=== PATIENT | male | born 1930 | race Caucasian/White ===

== ENCOUNTER 2016-09-03 05:09 | Inpatient (IN) | payer MEDICARE, OTHER ==
--- NOTE | ~2016-09-03 | HP ---
History And Physical [address] [place]. [address] NAME: ANDREW DRISCOLL : [birth year] STATUS : ADM IN [facility]#: [id number] AGE: 86 ADM/REG DATE : 09/03/16 MR#: [id number] REPORT SERV DATE: 09/03/16 DICTATED BY: KRISTINA KOROMA DATE: 09/03/16 REPORT STATUS : Draft TRANSCRIBED BY: MODL DATE: 09/03/16 DATE OF ADMISSION: 09/03/2016 HISTORY OF PRESENT ILLNESS: Mr. Driscoll is an 86-year-old white male, who has diabetes, and he is followed by Dr. Enrrique Diaz. He lives alone. There is a family history of heart disease. Around 3 o'clock this morning he experienced crushing substernal chest discomfort. He was picked up by EMS and found to have ST elevation in the inferior leads. Heart rate at that time was 43. He is still having fairly significant chest pain at this time, although he appears comfortable. PAST MEDICAL HISTORY: Pertinent only for the diabetes and the hernia repair. ALLERGIES: NONE. MEDICATIONS: His only medication is metformin. SOCIAL HISTORY: Again he lives alone, and able to take care of himself. He performs activities of daily living independently. He does have a daughter that lives nearby. FAMILY HISTORY: Positive for heart disease late in life. PAST SURGICAL HISTORY: As listed above. REVIEW OF SYSTEMS: Otherwise all negative. PHYSICAL EXAMINATION: VITAL SIGNS: His blood pressure is 88/50, heart rate 65. GENERAL: The patient is a comfortable appearing, elderly white male. He is alert and oriented x3. HEENT: Pupils equal, round, and reactive to light and accommodation. Extraocular muscles are intact. NECK: Supple. Trachea midline. No carotid bruits. CHEST: Clear. HEART: PMI midclavicular line. Regular rate and rhythm. No significant murmur. ABDOMEN: Soft and nontender. EXTREMITIES: No clubbing, cyanosis, or edema. NEURO: Nonfocal. DATA: A 12-lead EKG does show ST elevation in the inferior leads with reciprocal change in the anterior leads. Blood work is pending. CLINICAL IMPRESSIONS: 1. Inferior ST-elevation myocardial infarction. History And Physical [address] [place]. [address] NAME: ANDREW DRISCOLL : [birth year] STATUS : ADM IN PAT#: [id number] AGE: 86 ADM/REG DATE : 09/03/16 MR#: [id number] REPORT SERV DATE: 09/03/16 DICTATED BY: KRISTINA KOROMA DATE: 09/03/16 REPORT STATUS : Draft TRANSCRIBED BY: ARELIS DATE: 09/03/16 2. Diabetes. 3. Advanced age. 4. Positive family history of heart disease. PLAN: 1. Primary PCI. 2. To the CCU for further care and observation. [facility]ELIS Kristina Koroma M.D. / [id number] CC: Daysi Emery D.O. F.A.C.P.
--- NOTE | ~2016-09-03 | CN ---
Consultation Report [facility] [address] [place]. [address] NAME: ANDREW DRISCOLL : [birth year] STATUS : ADM IN [facility]#: [id number] AGE: 86 ADM/REG DATE : 09/03/16 MR#: [id number] REPORT SERV DATE: 09/03/16 DICTATED BY: TONY POSEY DATE: 09/03/16 REPORT STATUS : Draft TRANSCRIBED BY: MODL DATE: 09/03/16 CONSULTATION DATE OF CONSULTATION: 09/03/2016 REASON FOR CONSULT: Diabetes management. HISTORY OF PRESENT ILLNESS: This is an 86-year-old male with a past medical history of type 2 diabetes, for which the patient states he has been a diabetic for several years but does not know for how long. Follows up with Dr. Enrrique Diaz. States that his last hemoglobin A1c was around 6 and only uses metformin at home. The patient states that he tries to refrain from sugary foods and does cook his own meals at home. He was admitted to Cardiology Service to Dr. Lencho Walter for complaint of chest pain and brought to the hospital by EMS and found to have some ST elevation. The patient is now status post PCI with stent placement to the RCA and currently in the CCU and the hospitalists were consulted for diabetes management. Currently, the patient feels well with no complaints and eating a snack. PAST MEDICAL HISTORY: Type 2 diabetes. PAST SURGICAL HISTORY: Hernia repair. SOCIAL HISTORY: No reported alcohol. Lives alone. Able to perform his ADLs at home. FAMILY HISTORY: Coronary artery disease. HOME MEDICATIONS: Please refer to MAR. PHYSICAL EXAMINATION: VITAL SIGNS: Blood pressure 106/54 with a pulse of 49, respirations 16, and saturating 99% on 2 L. Temperature, he is afebrile. GENERAL: The patient is alert and oriented, very pleasant, currently in no distress. HEENT: Pupils equal, round, and reactive to light. Extraocular muscles are intact. Moist mucous membranes. CARDIOVASCULAR: S1, S2. No appreciated rubs or gallops. No JVD. RESPIRATORY: Clear to auscultation bilaterally. No wheezes or crackles. No signs of tachypnea. ABDOMEN: Positive bowel sounds. Soft, nontender. No rebound. No fluid wave. No distention. EXTREMITIES: Warm and no edema. No appreciated rashes. NEUROLOGIC: Cranial nerves 2 through 12 are grossly intact. Moves all four extremities. No neuro focal deficits. SKIN: No appreciated ulcerations. Consultation Report [address] [place]. [address] NAME: ANDREW DRISCOLL : [birth year] STATUS : ADM IN [facility]#: [id number] AGE: 86 ADM/REG DATE : 09/03/16 MR#: [id number] REPORT SERV DATE: 09/03/16 DICTATED BY: TONY POSEY DATE: 09/03/16 REPORT STATUS : Draft TRANSCRIBED BY: ARELIS DATE: 09/03/16 LABS: White count of 10.8, hemoglobin of 12.9, with a platelet count 223. Sodium 141, potassium 4.5, chloride of 107, bicarb of 26, BUN of 23, creatinine of 1.19 with a glucose of 193, and troponin 0.04. ASSESSMENT AND PLAN: 1. History of type 2 diabetes. We will check hemoglobin A1c. Place on ADA diet. Continue with the sliding scale insulin and Levemir as needed. Also will consult Diabetic Education also. 2. ST-elevation [place] management deferred to Cardiology Management. 3. We will hold metformin for now. Thank you for consultation. [facility]/ARELIS Tony Posey M.D. / [phone] CC: Daysi Emery D.O. F.A.C.P.
--- NOTE | ~2016-09-03 | DS ---
Discharge Summary [facility] [address] [place]. [address] NAME: ANDREW DRISCOLL : [birth year] STATUS : DIS IN PAT#: [id number] AGE: 86 ADM/REG DATE : 09/03/16 MR#: [id number] REPORT SERV DATE: 09/19/16 DICTATED BY: KRISTINA KOROMA DATE: 09/18/16 REPORT STATUS : Draft TRANSCRIBED BY: ARELIS DATE: 09/18/16 Data Collection from hospitalization DISCHARGE DIAGNOSES: 1. ST-elevation myocardial infarction status post drug-eluting stent, E/M right coronary artery. 2. Coronary artery disease. 3. Type 2 diabetes mellitus. CONSULTATION: Dr. Wilma Bunch. PROCEDURES PERFORMED: 1. Cardiac catheterization and percutaneous coronary intervention, 09/03/2016. 2. Staged percutaneous coronary intervention, 09/05/2016. MEDICATIONS: Aspirin 81 mg daily, Lipitor 40 mg at bedtime, Plavix 75 mg daily, Prinivil 2.5 mg daily, Fortamet 500 mg twice a day, Lopressor 12.5 mg twice a day, nitroglycerin 0.4 mg sublingually as needed, multivitamins one dose twice a day. CONDITION AT DISCHARGE: Stable. DISPOSITION: The patient was discharged home on an 1800-calorie cardiac/diabetic diet with activities as instructed. He would follow up with Dr. Aniket Duffy, 10/01/2016. He would have creatinine blood draw performed between 09/07/2016 and 09/12/2016. HOSPITAL COURSE: This is an 86-year-old man, who has diabetes. He lives alone. He does have a family history of heart disease. Around 3 a.m., he experienced crushing substernal chest discomfort. He was picked up by EMS and was found to have ST elevation in the inferior leads. Heart rate at that time was 43. He was still having fairly significant chest pain at this time, although he appeared comfortable. He was felt to have had an [id number] myocardial infarction. Treatment options were discussed and it was elected to proceed with surgical intervention. He was admitted at this time for further evaluation and treatment. Upon admission, he was taken to the cardiac radiographer cardiac catheterization, where he underwent the above-mentioned procedure. He tolerated this well and there were no complications. Following this, he was seen by Dr. Wilma Bunch. The patient was currently in the CCU. She had been asked to see the patient regarding diabetes management. White count was 10.8. Glucose was 193. Hemoglobin A1c was going to be checked. He was placed on a diabetic diet. Sliding scale insulin and Levemir would be continued as needed. He was going to undergo diabetes education. Metformin was on hold. Following day, he underwent diabetes education. He said he was feeling well. He had no chest pain or dyspnea. Creatinine level was 1.23. Plans were being made for staged percutaneous coronary intervention to be performed. Sliding scale insulin continued. Metformin remained on hold. Hemoglobin A1c was 6.6. On the , the patient was taken back to the cardiac radiographer cardiac catheterization, where he underwent staged percutaneous coronary intervention. Creatinine level had decreased to 1.04. Left ventricular ejection fraction was 50%. Discharge planning was performed. On 09/06/2016, he was in no acute distress. His lungs were clear. He had no edema. Aspirin, Plavix, metoprolol, and statin Discharge Summary [address] [address] NAME: ANDREW DRISCOLL : [birth year] STATUS : DIS IN PAT#: [id number] AGE: 86 ADM/REG DATE : 09/03/16 MR#: [id number] REPORT SERV DATE: 09/19/16 DICTATED BY: KRISTINA KOROMA DATE: 09/18/16 REPORT STATUS : Draft TRANSCRIBED BY: ARELIS DATE: 09/18/16 were continued. Lisinopril was added. Discharge instructions were given. Due to his improved and stable condition, he was discharged home to be followed by home health care with the above-stated instructions. Information collected by: Jaquelin Hodge I submit the above information as my discharge summary. [facility] Kristina Koroma M.D. / [id number] CC: Daysi Emery D.O. F.A.C.P.
[2016-09-03 05:00] LABS: BASOPHILS 0.3 %; BASOPHILS ABSOLUTE 0.03 10/3/uL (0.0-0.16); EOSINOPHILS 2.2 %; EOSINOPHILS ABSOLUTE 0.24 10/3/uL (0.0-0.53); ER CBC TAT 0 Hrs 03 Mins; HEMOGLOBIN 12.9 g/dL (13.6-17.8); IMMATURE GRANULOCYTES 0.2 %; IMMATURE GRANULOCYTES ABSOLUTE 0.02 10/3/uL (0.0-0.11); LYMPHOCYTES 26.6 %; LYMPHOCYTES ABSOLUTE 2.87 10/3/uL (0.67-4.30); MEAN CORPUSCULAR HEMOGLOB 33.1 pg (26.0-34.0); MEAN CORPUSCULAR VOLUME 94.6 fL (80-100); MONOCYTES 4.1 %; MONOCYTES ABSOLUTE 0.44 10/3/uL (0.21-1.20); NEUTROPHILS 66.6 %; NEUTROPHILS ABSOLUTE 7.19 10/3/uL (2.02-8.40); PLATELET COUNT 223 10/3/uL (150-400); RBC DISTRIBUTION WIDTH 14.1 % (12.0-16.0); WHITE BLOOD CELLS 10.8 10/3/uL (4.5-10.5)
[2016-09-03 05:03] LABS: HEMATOCRIT 36.9 % (40.0-51.0); MANUAL DIFF NO %
[2016-09-03 05:09] LABS: PROTIME (NOT ORD) 13.2 SEC (12.0-14.5)
[2016-09-03 05:11] LABS: PARTIAL THROMBO TIME 20.7 SEC (22.5-37.2)
[2016-09-03 05:18] LABS: BUN (BLOOD UREA NITROGEN) 23 MG/DL (6-23); CALCIUM, SERUM 8.7 MG/DL (8.5-10.4); CHEST PAIN PROFILE TAT 0 Hrs 21 Mins; CHLORIDE, SERUM 107 MMOL/L (96-112); CO2 (CARBON DIOXIDE) 26 MMOL/L (24-34); CREATININE 1.19 MG/DL (0.70-1.30); GFR AFRICAN AMERICAN 63 ML/MIN (>=60); GFR NON AFRICAN AMERICAN 54 ML/MIN (>=60); GLUCOSE, SERUM 193 MG/DL (60-99); SODIUM, SERUM 141 MMOL/L (135-148); TROPONIN I 0.04 NG/ML (<0.05)
[2016-09-03 05:19] LABS: POTASSIUM, SERUM 4.5 MMOL/L (3.5-5.3)
[2016-09-03 14:02] LABS: CK-MB 103.5 NG/ML
[2016-09-03 14:03] LABS: CKMB INDEX (NOT ORD) 9.5
[2016-09-03] MEDS ORDERED: FORTAMET500 MG PO (14:11)
[2016-09-03] MEDS ORDERED: MULTIVITAMIN PACK PO (14:12)
[2016-09-03 21:19] LABS: CK-MB 97.2 NG/ML
[2016-09-03 21:20] LABS: CKMB INDEX (NOT ORD) 6.7
[2016-09-03 21:21] LABS: TROPONIN I 63.5 NG/ML (<0.05)
[2016-09-04 04:32] LABS: BASOPHILS 0.2 %; BASOPHILS ABSOLUTE 0.02 10/3/uL (0.0-0.16); EOSINOPHILS 2.2 %; EOSINOPHILS ABSOLUTE 0.22 10/3/uL (0.0-0.53); HEMATOCRIT 33.5 % (40.0-51.0); HEMOGLOBIN 11.2 g/dL (13.6-17.8); IMMATURE GRANULOCYTES 0.3 %; IMMATURE GRANULOCYTES ABSOLUTE 0.03 10/3/uL (0.0-0.11); LYMPHOCYTES 23.8 %; LYMPHOCYTES ABSOLUTE 2.35 10/3/uL (0.67-4.30); MEAN CORPUS HGB CONC 33.4 g/dL (32.0-36.0); MEAN CORPUSCULAR HEMOGLOB 31.5 pg (26.0-34.0); MEAN CORPUSCULAR VOLUME 94.1 fL (80-100); MEAN PLATELET VOLUME 8.7 fL (9.2-13.0); MONOCYTES ABSOLUTE 0.49 10/3/uL (0.21-1.20); NEUTROPHILS 68.5 %; NEUTROPHILS ABSOLUTE 6.75 10/3/uL (2.02-8.40); PLATELET COUNT 189 10/3/uL (150-400); RBC DISTRIBUTION WIDTH 14.3 % (12.0-16.0); RED CELL COUNT 3.56 10/6/uL (4.7-6.1); WHITE BLOOD CELLS 9.9 10/3/uL (4.5-10.5)
[2016-09-04 04:33] LABS: MANUAL DIFF NO %
[2016-09-04 04:57] LABS: BUN (BLOOD UREA NITROGEN) 22 MG/DL (6-23); CHLORIDE, SERUM 104 MMOL/L (96-112); CHOL/HDL RATIO(NOT ORDER) 2.3 (0-5); CHOLESTEROL 112 MG/DL (< 200); CK-MB 57.8 NG/ML; CKMB INDEX (NOT ORD) 4.7; CO2 (CARBON DIOXIDE) 29 MMOL/L (24-34); CPK 1239 U/L (0-200); CREATININE 1.23 MG/DL (0.70-1.30); GFR AFRICAN AMERICAN 60 ML/MIN (>=60); GFR NON AFRICAN AMERICAN 52 ML/MIN (>=60); GLUCOSE, SERUM 120 MG/DL (60-99); HDL CHOLESTEROL 48 MG/DL (> 39); LDL CHOLESTEROL 47 MG/DL (< 130); NON-HDL CHOLESTEROL 64 MG/DL (< 160); POTASSIUM, SERUM 4.4 MMOL/L (3.5-5.3); SODIUM, SERUM 138 MMOL/L (135-148); TRIGLYCERIDE 87 MG/DL (< 150)
[2016-09-05 04:38] LABS: BUN (BLOOD UREA NITROGEN) 22 MG/DL (6-23); CALCIUM, SERUM 8.2 MG/DL (8.5-10.4); CHLORIDE, SERUM 105 MMOL/L (96-112); CO2 (CARBON DIOXIDE) 28 MMOL/L (24-34); CREATININE 1.04 MG/DL (0.70-1.30); GFR AFRICAN AMERICAN 74 ML/MIN (>=60); GFR NON AFRICAN AMERICAN 64 ML/MIN (>=60); GLUCOSE, SERUM 105 MG/DL (60-99); POTASSIUM, SERUM 4.1 MMOL/L (3.5-5.3); SODIUM, SERUM 138 MMOL/L (135-148)
[2016-09-05 09:02] LABS: BASOPHILS 0.3 %; BASOPHILS ABSOLUTE 0.03 10/3/uL (0.0-0.16); EOSINOPHILS 4.9 %; EOSINOPHILS ABSOLUTE 0.45 10/3/uL (0.0-0.53); HEMATOCRIT 36.5 % (40.0-51.0); HEMOGLOBIN 12.1 g/dL (13.6-17.8); IMMATURE GRANULOCYTES 0.3 %; IMMATURE GRANULOCYTES ABSOLUTE 0.03 10/3/uL (0.0-0.11); LYMPHOCYTES 21.9 %; LYMPHOCYTES ABSOLUTE 2.03 10/3/uL (0.67-4.30); MANUAL DIFF NO %; MEAN CORPUS HGB CONC 33.2 g/dL (32.0-36.0); MEAN CORPUSCULAR HEMOGLOB 30.9 pg (26.0-34.0); MEAN CORPUSCULAR VOLUME 93.1 fL (80-100); MEAN PLATELET VOLUME 9.1 fL (9.2-13.0); MONOCYTES 5.5 %; MONOCYTES ABSOLUTE 0.51 10/3/uL (0.21-1.20); NEUTROPHILS 67.1 %; NEUTROPHILS ABSOLUTE 6.21 10/3/uL (2.02-8.40); PLATELET COUNT 195 10/3/uL (150-400); RBC DISTRIBUTION WIDTH 14.2 % (12.0-16.0); RED CELL COUNT 3.92 10/6/uL (4.7-6.1); WHITE BLOOD CELLS 9.3 10/3/uL (4.5-10.5)
[2016-09-05 09:07] LABS: PROTIME (NOT ORD) 13.3 SEC (12.0-14.5)
[2016-09-05 09:16] LABS: BUN (BLOOD UREA NITROGEN) 19 MG/DL (6-23); CALCIUM, SERUM 8.3 MG/DL (8.5-10.4); CHLORIDE, SERUM 104 MMOL/L (96-112); CHOL/HDL RATIO(NOT ORDER) 2.6 (0-5); CHOLESTEROL 129 MG/DL (< 200); CO2 (CARBON DIOXIDE) 28 MMOL/L (24-34); CREATININE 1.17 MG/DL (0.70-1.30); GFR AFRICAN AMERICAN 64 ML/MIN (>=60); GFR NON AFRICAN AMERICAN 55 ML/MIN (>=60); GLUCOSE, SERUM 112 MG/DL (60-99); HDL CHOLESTEROL 49 MG/DL (> 39); LDL CHOLESTEROL 59 MG/DL (< 130); NON-HDL CHOLESTEROL 80 MG/DL (< 160); POTASSIUM, SERUM 4.4 MMOL/L (3.5-5.3); SODIUM, SERUM 138 MMOL/L (135-148); TRIGLYCERIDE 107 MG/DL (< 150)
[2016-09-06 05:21] LABS: HEMATOCRIT 34.2 % (40.0-51.0); HEMOGLOBIN 11.6 g/dL (13.6-17.8)
[2016-09-06 05:30] LABS: BUN (BLOOD UREA NITROGEN) 19 MG/DL (6-23); CALCIUM, SERUM 8.1 MG/DL (8.5-10.4); CHLORIDE, SERUM 107 MMOL/L (96-112); CO2 (CARBON DIOXIDE) 25 MMOL/L (24-34); CREATININE 1.06 MG/DL (0.70-1.30); GFR AFRICAN AMERICAN 72 ML/MIN (>=60); GFR NON AFRICAN AMERICAN 62 ML/MIN (>=60); GLUCOSE, SERUM 107 MG/DL (60-99); POTASSIUM, SERUM 4.3 MMOL/L (3.5-5.3); SODIUM, SERUM 140 MMOL/L (135-148)
[2016-09-06] MEDS ORDERED: LIPITOR40 PO (07:40)
[2016-09-06] MEDS ORDERED: ASAB PO (07:40)
[2016-09-06] MEDS ORDERED: PLAVIX PO (07:41)
[2016-09-06] MEDS ORDERED: LOP25 PO (07:42)
[2016-09-06] MEDS ORDERED: PRIN2.5 PO (07:44)
[2016-09-06] MEDS ORDERED: NTG150 SL (07:44)
== END 2016-09-06 12:46 | disposition home health service (06) | DRG 247 ==
LOC: CORLMH 05:09 → SSU2 05:13 → CCU 07:11 → 6NO 09-04 16:50 → SSU1 09-05 12:05
PROVIDERS: Internal Medicine Cardiovascular Disease; Internal Medicine Interventional Cardiology; Specialist
DX: I21.19 ST elevation (STEMI) myocardial infarction involving other coronary artery of inferior wall (principal); E11.22 Type 2 diabetes mellitus with diabetic chronic kidney disease; I25.119 Atherosclerotic heart disease of native coronary artery with unspecified angina pectoris; I12.9 Hypertensive chronic kidney disease with stage 1 through stage 4 chronic kidney disease, or unspecified chronic kidney disease; N18.9 Chronic kidney disease, unspecified; Z82.49 Family history of ischemic heart disease and other diseases of the circulatory system; Z98.890 Other specified postprocedural states; Z79.84 Long term (current) use of oral hypoglycemic drugs
CPT/HCPCS: 71010; 80048; 80061; 82550; 82553; 82565; 82962; 83036; 83735; 84484; 85014; 85018; 85025; 85610; 85730; 87641; 93005; 93458; 96374; 99152; 99153; 99285; A9270-GY; C1725; C1760; C1769; C1874; C1887; C1894; C8929; C9600; C9606; J0583; J2250; J2405; J3010; Q9957; Q9967